=== PATIENT | male | born 1955 | race African-American/Black ===

== ENCOUNTER 2019-05-31 08:58 | Inpatient (IN) ==
[2019-05-31] MEDS ORDERED: DEXTROSE 50% 25 GM/50 ML VIAL IV PRN (09:30)
[2019-05-31] MEDS ORDERED: DEXTROSE 10% 25 GM/250 ML BAG IV PRN (09:30)
[2019-05-31] MEDS ORDERED: GLUCAGON 1 MG VIAL IM PRN ×2 (09:30)
[2019-05-31] MEDS ORDERED: SODIUM CHLORIDE 0.9% 1,000 ML IV SCH (09:30)
[2019-05-31] MEDS ORDERED: ZALEPLON 5 MG CAPSULE PO PRN (09:35)
[2019-05-31] MEDS: carvediloL 3.125 MG TABLET PO SCH (20:47)
[2019-06-01 04:16] LABS: ABG Base Excess 1.3 MMOL/L (-2.5-2.5); ABG HCO3 25.4 MMOL/L (20-26); ABG Oxygen Saturation 95.1 % (95-100); ABG PCO2 39.8 MM HG (35-48); ABG PH 7.419 (7.35-7.45); ABG PO2 74.3 MM HG (80-95); ABG TCO2 21.9 MMOL/L (23-27); Allen Test Positive; Pt O2 Delivery Device Room Air
[2019-06-01 04:50] LABS: Basophils # 0.1 10*3/uL (0.0-0.2); Basophils % 1.1 % (0.0-0.8); Eosinophils # 0.2 10*3/uL (0.0-0.87); Eosinophils % 3.4 % (0.00-10.9); Hematocrit 43.2 VOL% (42.0-52.0); Hemoglobin 14.5 GM/DL (14.0-18.0); Immature Granulocytes % 0.2 %; Immature Granulocytes Absolute 0.01 #; Lymphocytes # 2.7 10*3/uL (1.4-4.0); Lymphocytes % 57.2 % (21.2-54.2); Mean Corpuscular HGB Conc 33.6 GM/DL (32-36); Mean Platelet Volume 12.6 FL (9.6-12.0); Monocytes % 11.1 % (1.7-12.7); Platelet Count 164 T/CUMM (130-400); Red Cell Distribution Width 13.2 % (9.3-17.3); White Blood Count 4.7 T/CUMM (4-12)
[2019-06-01 05:02] LABS: Albumin 3.5 G/DL (3.4-5.0); Bilirubin,Total 1.1 MG/DL (0.2-1.0); Calcium 9.4 MG/DL (8.5-10.1); Osmolality,Calculated 282.3 MOS/KG (273-304); Total Protein 7.3 G/DL (6.4-8.3)
[2019-06-01 05:18] LABS: Eosinophils 3 % (0-10); Lymphocytes 63 % (20-55); Segmented Neutrophils 23 % (50-85); Total Cells Counted 100
[2019-06-01 05:19] LABS: Platelet Estimate Normal
[2019-06-01] MEDS: CHLORHEXIDINE 0.12% ORAL RINSE 60 ML BOTTLE SWISH/SPIT SCH ×3 (06:28→21:40)
[2019-06-01] MEDS: carvediloL 3.125 MG TABLET PO SCH ×2 (08:50→21:39)
[2019-06-01] MEDS: amLODIPine 10 MG TABLET PO SCH (08:50)
[2019-06-01] MEDS: ATORVASTATIN 40 MG TABLET PO SCH (08:50)
[2019-06-01] MEDS ORDERED: CEFUROXIME INJ 1,500 MG in SYRINGE 1 EACH IV ONE (09:30)
[2019-06-01] MEDS ORDERED: oxyCODONE/ACETAMINOPHEN 5-325 MG TABLET PO PRN (12:50)
[2019-06-01] MEDS: CHLORHEXIDINE 4% SOLN 118 ML BOTTLE TOP SCH ×3 (18:00→21:40)
[2019-06-02] MEDS ORDERED: SODIUM CHLORIDE 0.9% 1,000 ML IV SCH (04:00)
[2019-06-02] MEDS ORDERED: CEFUROXIME INJ 1,500 MG in SYRINGE 1 EACH IV ONE (04:00)
[2019-06-02] MEDS: CHLORHEXIDINE 4% SOLN 118 ML BOTTLE TOP SCH ×2 (04:57→09:25)
[2019-06-02] MEDS ORDERED: PAPAVERINE 60 MG/2 ML VIAL ONE (05:10)
[2019-06-02] MEDS ORDERED: VANCOMYCIN 1,000 MG VIAL ONE (05:10)
[2019-06-02] MEDS ORDERED: HEPARIN/NACL 0.9% 2 UNITS/ML 500 ML IV ONE (05:54)
[2019-06-02] MEDS ORDERED: SUFentanil 250 MCG/5 ML AMP ONE (05:55)
[2019-06-02] MEDS ORDERED: MIDAZOLAM 10 MG/2 ML VIAL ONE ×2 (05:55→05:56)
[2019-06-02] MEDS ORDERED: SUFentanil 50 MCG/ML AMP ONE (05:55)
[2019-06-02] MEDS: carvediloL 3.125 MG TABLET PO SCH ×2 (06:07→09:25)
[2019-06-02] MEDS: amLODIPine 10 MG TABLET PO SCH ×2 (06:07→09:24)
[2019-06-02] MEDS ORDERED: ePHEDrine 50 MG/ML AMP ONE (06:12)
[2019-06-02 07:48] LABS: ABG Base Excess -0.8 MMOL/L (-2.5-2.5); ABG HCO3 23.8 MMOL/L (20-26); ABG Oxygen Saturation 99.7 % (95-100); ABG PCO2 36.1 MM HG (35-48); ABG PH 7.416 (7.35-7.45); Glucose Heart Surgery 119 MG/DL (74-106); Hematocrit Heart Surgery 43.1 PERCENT (42-52); Ionized Calcium Arterial 1.43 MMOL/L (1.21-1.46); PCO2 Patient Temp Arterial 36.1 MMHG; PH Patient Temp Arterial 7.416; Patient Temperature 37 CELCIUS; Potassium Heart/CVR 3.9 MMOL/L (3.5-5.1); Sodium Heart/CVR 134 MMOL/L (135-145)
[2019-06-02 09:15] LABS: Hematocrit Heart Surgery 30.4 PERCENT (42-52); Hemoglobin Heart Surgery 9.8 G/DL (14.0-18.0); PCO2 Patient Temp Venous 35.2 MM HG; PH Patient Temp Venous 7.439; PO2 Patient Temp Venous 40.6 MM HG; Potassium Heart/CVR 4.7 MMOL/L (3.5-5.1); VBG Base Excess 0.1 MEQ/L (0-4); VBG HCO3 24.2 MEQ/L (24-28); VBG Oxygen Saturation 81.3 %; VBG PH 7.424; VBG PO2 43.5 MMHG (17-40)
[2019-06-02 09:19] LABS: Apearance,Urine CLEAR (Clear); Bacteria,Urine Occasional /HPF (Few); Bilirubin,Urine Negative (Negative); Blood, Urine Small mg/dL (Negative); Glucose,Urine (UA) Negative (Negative); Ketones,Urine Negative (Negative); Mucus,Urine Occasional /LPF (Occasional); Nitrite,Urine Negative (Negative); Protein,Urine Negative; RBC,Urine 2 /HPF (0-4); Squamous Epithelial Cell,Urine Occasional /HPF (0-10); Urine Color Yellow (Yellow); Urine Specific Gravity 1.019 (1.001-1.035); WBC,Urine <1 /HPF (0-6)
[2019-06-02] MEDS: ATORVASTATIN 40 MG TABLET PO SCH (09:24)
[2019-06-02] MEDS: CHLORHEXIDINE 0.12% ORAL RINSE 60 ML BOTTLE SWISH/SPIT SCH ×2 (09:24→21:34)
[2019-06-02] MEDS ORDERED: ALBUMIN 5% 12.5 GM/250 ML VIAL IV ONE ×2 (09:35→11:02)
[2019-06-02 09:41] LABS: Hematocrit Heart Surgery 32.5 PERCENT (42-52); Hemoglobin Heart Surgery 10.5 G/DL (14.0-18.0); PCO2 Patient Temp Venous 37.3 MM HG; PH Patient Temp Venous 7.412; PO2 Patient Temp Venous 43.6 MM HG; Potassium Heart/CVR 4.9 MMOL/L (3.5-5.1); VBG Base Excess -0.6 MEQ/L (0-4); VBG HCO3 23.7 MEQ/L (24-28); VBG PCO2 37.3 MMHG (41-51); VBG PH 7.412; VBG PO2 43.6 MMHG (17-40)
[2019-06-02 10:15] LABS: ABG Base Excess -3.1 MMOL/L (-2.5-2.5); ABG HCO3 21.9 MMOL/L (20-26); ABG Oxygen Saturation 99.8 % (95-100); ABG PCO2 36.3 MM HG (35-48); ABG PH 7.381 (7.35-7.45); ABG TCO2 19.2 MMOL/L (23-27); Glucose Heart Surgery 210 MG/DL (74-106); Hematocrit Heart Surgery 35.6 PERCENT (42-52); Hemoglobin Heart Surgery 11.6 G/DL (14.0-18.0); Ionized Calcium Arterial 1.55 MMOL/L (1.21-1.46); PCO2 Patient Temp Arterial 36.3 MMHG; PH Patient Temp Arterial 7.381; Patient Temperature 37 CELCIUS; Potassium Heart/CVR 4.2 MMOL/L (3.5-5.1); Sodium Heart/CVR 131 MMOL/L (135-145)
[2019-06-02] MEDS ORDERED: methylPREDNISolone SOD SUC 1,000 MG/8 ML VIAL ONE (10:20)
[2019-06-02] MEDS ORDERED: DEXTROSE 5% KCL 20 MEQ 20 MEQ/1,000 ML BAG IV ONE (10:20)
[2019-06-02] MEDS ORDERED: LIDOCAINE 2% 5 ML VIAL ONE ×2 (10:20→11:02)
[2019-06-02] MEDS ORDERED: SODIUM BICARBONATE 50 MEQ/50 ML VIAL IV ONE (10:20)
[2019-06-02] MEDS ORDERED: MAGNESIUM SULFATE 5 GM/10 ML VIAL IV ONE (10:20)
[2019-06-02] MEDS ORDERED: MANNITOL 100 GM/500 ML BAG IV ONE (10:20)
[2019-06-02] MEDS ORDERED: PROTAMINE SULFATE 250 MG/25 ML VIAL IV ONE (10:20)
[2019-06-02] MEDS ORDERED: HEPARIN 10,000 UNIT/10 ML VIAL ONE (10:20)
[2019-06-02] MEDS ORDERED: ALBUMIN 25% 25 GM/100 ML VIAL IV ONE (10:20)
[2019-06-02] MEDS ORDERED: FUROSEMIDE 20 MG/2 ML VIAL ONE (10:21)
[2019-06-02] MEDS: LACTATED RINGERS 1,000 ML IV PRN ×3 (10:50→16:42)
[2019-06-02] MEDS: SODIUM CHLORIDE 0.45% 1,000 ML IV SCH ×2 (10:50)
[2019-06-02] MEDS ORDERED: SEVOFLURANE 1 UNIT/15 MINUTE INH ONE (11:02)
[2019-06-02] MEDS ORDERED: METOPROLOL TARTRATE 5 MG/5 ML VIAL IV ONE (11:02)
[2019-06-02] MEDS ORDERED: VECURONIUM 10 MG VIAL IV ONE (11:02)
[2019-06-02] MEDS ORDERED: PHENYLEPHRINE 10 MG/1 ML VIAL IV ONE (11:02)
[2019-06-02] MEDS ORDERED: CALCIUM CHLORIDE 1,000 MG/10 ML VIAL IV ONE (11:02)
[2019-06-02] MEDS ORDERED: SODIUM CHLORIDE 0.9% 500 ML IV ONE (11:03)
[2019-06-02] MEDS ORDERED: SODIUM CHLORIDE 0.9% 100 ML IV ONE (11:03)
[2019-06-02] MEDS ORDERED: AMINOCAPROIC ACID 5,000 MG/20 ML VIAL ONE (11:03)
[2019-06-02] MEDS ORDERED: SODIUM CHLORIDE 0.9% 1,000 ML IV ONE (11:03)
[2019-06-02] MEDS ORDERED: LACTATED RINGERS 1,000 ML IV ONE (11:03)
[2019-06-02] MEDS ORDERED: INSULIN REGULAR 100 UNIT/ML IV ONE (11:07)
[2019-06-02] MEDS ORDERED: ACETAMINOPHEN 650 MG SUPP RECTAL PRN (11:07)
[2019-06-02] MEDS ORDERED: NITROPRUSSIDE 100 MG in DEXTROSE 5% 250 ML IV PRN (11:07)
[2019-06-02] MEDS ORDERED: LACTATED RINGERS 250 ML IV PRN (11:07)
[2019-06-02] MEDS ORDERED: MAGNESIUM SULF RIDER 2 GM in PREMIX 1 EACH IV PRN (11:07)
[2019-06-02] MEDS ORDERED: ALBUMIN 5% 12.5 GM in PREMIX 1 EACH IV PRN (11:07)
[2019-06-02] MEDS ORDERED: VECURONIUM 10 MG VIAL IV PRN ×2 (11:07)
[2019-06-02] MEDS ORDERED: DEXTROSE 10% 250 ML BAG IV PRN ×2 (11:07)
[2019-06-02] MEDS ORDERED: CALCIUM CHLORIDE 1,000 MG/10 ML SYRINGE IV PRN (11:07)
[2019-06-02] MEDS ORDERED: ONDANSETRON 4 MG/2 ML VIAL IV PRN (11:07)
[2019-06-02] MEDS ORDERED: MIDAZOLAM 10 MG/2 ML VIAL IV PRN (11:07)
[2019-06-02] MEDS ORDERED: INSULIN REGULAR 100 UNIT/ML IV PRN (11:07)
[2019-06-02] MEDS ORDERED: PHENYLEPHRINE DRIP 40 MG/250 ML PREMIX IV PRN (11:07)
[2019-06-02] MEDS ORDERED: MAGNESIUM SULF RIDER 4 GM in PREMIX 1 EACH IV PRN (11:07)
[2019-06-02] MEDS ORDERED: KETOROLAC 30 MG/1 ML VIAL IV SCH (11:07)
[2019-06-02] MEDS ORDERED: PROTAMINE SULFATE 50 MG/5 ML VIAL IV STA (11:09)
[2019-06-02 11:17] LABS: Basophils % 0.3 % (0.0-0.8); Eosinophils # 0.1 10*3/uL (0.0-0.87); Eosinophils % 1.3 % (0.00-10.9); Hematocrit 35.5 VOL% (42.0-52.0); Immature Granulocytes % 0.5 %; Immature Granulocytes Absolute 0.03 #; Lymphocytes # 1.4 10*3/uL (1.4-4.0); Lymphocytes % 23.3 % (21.2-54.2); Mean Corpuscular HGB Conc 33.8 GM/DL (32-36); Mean Corpuscular Volume 89.6 FL (87-102); Mean Platelet Volume 12.1 FL (9.6-12.0); Monocytes % 6.2 % (1.7-12.7); Neutrophils % 68.4 % (38.7-73.9); Red Blood Count 3.96 MC/CUMM (3.8-5.5); Red Cell Distribution Width 13.1 % (9.3-17.3); White Blood Count 6.1 T/CUMM (4-12)
[2019-06-02 11:17] LABS: ABG Base Excess -1.7 MMOL/L (-2.5-2.5); ABG Oxygen Saturation 99.2 % (95-100); ABG PCO2 35.2 MM HG (35-48); ABG TCO2 19.7 MMOL/L (23-27); Glucose Heart Surgery 171 MG/DL (74-106); Hematocrit Heart Surgery 38.2 PERCENT (42-52); Hemoglobin Heart Surgery 12.4 G/DL (14.0-18.0); Potassium Heart/CVR 4.4 MMOL/L (3.5-5.1)
[2019-06-02] MEDS ORDERED: NITROGLYCERIN DRIP 50 MG/250 ML BOTTLE IV ONE ×2 (11:21→18:19)
[2019-06-02 11:22] LABS: Platelet Count 131 T/CUMM (130-400)
[2019-06-02 11:25] LABS: INR 1.1; PT Patient Result 12.1 SECS (9.6-12.2); Partial Thromboplastin Time 30.2 SECS (20.8-36.0)
[2019-06-02 11:46] LABS: CKMB % 2.8 %
[2019-06-02 11:47] LABS: Albumin 3.3 G/DL (3.4-5.0); Calcium 9.4 MG/DL (8.5-10.1); Total Protein 6.1 G/DL (6.4-8.3); Troponin I 0.785 NG/ML (0.00-0.045)
[2019-06-02 12:14] LABS: ABG Base Excess -2.3 MMOL/L (-2.5-2.5); ABG HCO3 21.2 MMOL/L (20-26); ABG Oxygen Saturation 96.4 % (95-100); ABG PCO2 32.4 MM HG (35-48); ABG PH 7.434 (7.35-7.45); ABG PO2 85.1 MM HG (80-95); ABG TCO2 22.2 MMOL/L (23-27); Glucose Heart Surgery 141 MG/DL (74-106); Hemoglobin Heart Surgery 11.7 G/DL (14.0-18.0); Potassium Heart/CVR 3.8 MMOL/L (3.5-5.1)
[2019-06-02] MEDS: INSULIN REGULAR DRIP 100 ML IV SCH ×2 (12:20→16:28)
[2019-06-02] MEDS: POTASSIUM CHLORIDE RIDER 20 MEQ in PREMIX 1 EACH IV PRN ×2 (12:32→19:48)
[2019-06-02] MEDS ORDERED: SODIUM CHLORIDE 0.9% 1,000 ML IV PRN ×3 (13:15→13:51)
[2019-06-02 13:22] LABS: ABG Base Excess -2.1 MMOL/L (-2.5-2.5); ABG HCO3 22.6 MMOL/L (20-26); ABG Oxygen Saturation 96.8 % (95-100); ABG PCO2 32.6 MM HG (35-48); ABG PH 7.427 (7.35-7.45); ABG PO2 82.5 MM HG (80-95); ABG TCO2 19.3 MMOL/L (23-27); Glucose Heart Surgery 159 MG/DL (74-106); Hematocrit Heart Surgery 33.5 PERCENT (42-52); Hemoglobin Heart Surgery 10.9 G/DL (14.0-18.0); Potassium Heart/CVR 4.7 MMOL/L (3.5-5.1)
[2019-06-02] MEDS: POTASSIUM CHLORIDE RIDER 10 MEQ in PREMIX 1 EACH IV PRN ×3 (13:27→20:32)
[2019-06-02] MEDS: MORPHINE 4 MG/1 ML VIAL IV PRN (15:22)
[2019-06-02 15:43] LABS: ABG Base Excess -2.4 MMOL/L (-2.5-2.5); ABG HCO3 22.4 MMOL/L (20-26); ABG Oxygen Saturation 98.7 % (95-100); ABG PCO2 33.4 MM HG (35-48); ABG PH 7.416 (7.35-7.45); ABG TCO2 19.4 MMOL/L (23-27); Glucose Heart Surgery 213 MG/DL (74-106); Hematocrit Heart Surgery 31.6 PERCENT (42-52); Hemoglobin Heart Surgery 10.2 G/DL (14.0-18.0); Potassium Heart/CVR 4.1 MMOL/L (3.5-5.1)
[2019-06-02] MEDS: MIDAZOLAM 2 MG/2 ML VIAL IV PRN (16:24)
[2019-06-02 17:55] LABS: Basophils % 0.1 % (0.0-0.8); Hematocrit 26.1 VOL% (42.0-52.0); Hemoglobin 8.9 GM/DL (14.0-18.0); Immature Granulocytes % 0.6 %; Immature Granulocytes Absolute 0.06 #; Lymphocytes % 9.1 % (21.2-54.2); Mean Corpuscular HGB Conc 34.1 GM/DL (32-36); Mean Corpuscular Volume 90.3 FL (87-102); Mean Platelet Volume 11.7 FL (9.6-12.0); Monocytes % 5.2 % (1.7-12.7); Platelet Count 137 T/CUMM (130-400); Red Blood Count 2.89 MC/CUMM (3.8-5.5); Red Cell Distribution Width 13.2 % (9.3-17.3); White Blood Count 10.4 T/CUMM (4-12)
[2019-06-02 18:13] LABS: Calcium 9.2 MG/DL (8.5-10.1); Osmolality,Calculated 285.5 MOS/KG (273-304)
[2019-06-02] MEDS ORDERED: NITROGLYCERIN DRIP 50 MG/250 ML BOTTLE IV PRN (18:20)
[2019-06-02] MEDS: KETOROLAC 15 MG/1 ML VIAL IV SCH ×2 (18:21→22:15)
[2019-06-02] MEDS: CEFUROXIME INJ 1,500 MG in SYRINGE 1 EACH IV SCH (18:58)
[2019-06-02] MEDS ORDERED: FUROSEMIDE 40 MG/4 ML VIAL IV PRN (19:26)
[2019-06-02 20:58] LABS: CKMB % 1.6 %
[2019-06-02 21:00] LABS: Troponin I 1.43 NG/ML (0.00-0.045)
[2019-06-03] MEDS: MIDAZOLAM 2 MG/2 ML VIAL IV PRN (03:41)
[2019-06-03] MEDS ORDERED: HALOPERIDOL 5 MG/ML AMP IV PRN (04:04)
[2019-06-03 04:15] LABS: ABG Base Excess -1.4 MMOL/L (-2.5-2.5); ABG HCO3 23.2 MMOL/L (20-26); ABG Oxygen Saturation 97.1 % (95-100); ABG PCO2 31.7 MM HG (35-48); ABG PH 7.447 (7.35-7.45); ABG PO2 84.3 MM HG (80-95); ABG TCO2 19.6 MMOL/L (23-27); Glucose Heart Surgery 125 MG/DL (74-106); Hematocrit Heart Surgery 33.4 PERCENT (42-52); Hemoglobin Heart Surgery 10.8 G/DL (14.0-18.0)
[2019-06-03] MEDS ORDERED: FUROSEMIDE 40 MG/4 ML VIAL IV ONE ×2 (04:17→12:58)
[2019-06-03 04:30] LABS: Basophils % 0.1 % (0.0-0.8); Hematocrit 30.9 VOL% (42.0-52.0); Hemoglobin 10.4 GM/DL (14.0-18.0); Immature Granulocytes % 0.6 %; Immature Granulocytes Absolute 0.09 #; Lymphocytes # 1.5 10*3/uL (1.4-4.0); Lymphocytes % 9.1 % (21.2-54.2); Mean Corpuscular HGB Conc 33.7 GM/DL (32-36); Mean Corpuscular Volume 87.8 FL (87-102); Mean Platelet Volume 12.6 FL (9.6-12.0); Monocytes % 7.7 % (1.7-12.7); Neutrophils % 82.5 % (38.7-73.9); Platelet Count 151 T/CUMM (130-400); Red Blood Count 3.52 MC/CUMM (3.8-5.5); Red Cell Distribution Width 13.6 % (9.3-17.3); White Blood Count 16.3 T/CUMM (4-12)
[2019-06-03] MEDS: KETOROLAC 15 MG/1 ML VIAL IV SCH ×3 (04:30→16:54)
[2019-06-03 04:45] LABS: Albumin 3.2 G/DL (3.4-5.0); Bilirubin,Direct 0.23 MG/DL (0.0-0.20); Bilirubin,Total 0.5 MG/DL (0.2-1.0); Calcium 8.8 MG/DL (8.5-10.1); Osmolality,Calculated 278.7 MOS/KG (273-304)
[2019-06-03 04:54] LABS: CKMB % 1.2 %
[2019-06-03 04:59] LABS: Troponin I 2.24 NG/ML (0.00-0.045)
[2019-06-03] MEDS: POTASSIUM CHLORIDE RIDER 20 MEQ in PREMIX 1 EACH IV PRN (05:34)
[2019-06-03] MEDS: CEFUROXIME INJ 1,500 MG in SYRINGE 1 EACH IV SCH ×2 (06:11→18:27)
[2019-06-03 08:28] LABS: ABG Base Excess -1.3 MMOL/L (-2.5-2.5); ABG HCO3 23.3 MMOL/L (20-26); ABG Oxygen Saturation 96.8 % (95-100); ABG PCO2 35.8 MM HG (35-48); ABG PH 7.413 (7.35-7.45); ABG PO2 86.1 MM HG (80-95); ABG TCO2 20.4 MMOL/L (23-27); Glucose Heart Surgery 129 MG/DL (74-106); Hematocrit Heart Surgery 34.7 PERCENT (42-52); Hemoglobin Heart Surgery 11.2 G/DL (14.0-18.0); Potassium Heart/CVR 4.5 MMOL/L (3.5-5.1)
[2019-06-03] MEDS: MORPHINE 10 MG/1 ML VIAL IV PRN (08:55)
[2019-06-03] MEDS: CHLORHEXIDINE 0.12% ORAL RINSE 60 ML BOTTLE SWISH/SPIT SCH ×2 (10:19→21:19)
[2019-06-03] MEDS: SODIUM CHLORIDE 0.45% 1,000 ML IV SCH ×3 (11:55→17:31)
[2019-06-03] MEDS: INSULIN REGULAR DRIP 100 ML IV SCH (11:57)
[2019-06-03 11:58] LABS: ABG Base Excess -0.2 MMOL/L (-2.5-2.5); ABG HCO3 23.2 MMOL/L (20-26); ABG Oxygen Saturation 96.3 % (95-100); ABG PCO2 33.8 MM HG (35-48); ABG PH 7.455 (7.35-7.45); ABG PO2 84.5 MM HG (80-95); ABG TCO2 24.3 MMOL/L (23-27); Glucose Heart Surgery 121 MG/DL (74-106); Potassium Heart/CVR 3.9 MMOL/L (3.5-5.1)
[2019-06-03] MEDS: MORPHINE 4 MG/1 ML VIAL IV PRN ×2 (12:40→18:07)
[2019-06-03] MEDS ORDERED: GLUCAGON 1 MG VIAL IM PRN (14:23)
[2019-06-03] MEDS ORDERED: DEXTROSE 10% 250 ML BAG IV PRN (14:23)
[2019-06-03] MEDS ORDERED: ZALEPLON 5 MG CAPSULE PO PRN (14:25)
[2019-06-03 14:28] LABS: CKMB % 0.9 %
[2019-06-03 14:34] LABS: Troponin I 3.09 NG/ML (0.00-0.045)
[2019-06-03] MEDS: carvediloL 3.125 MG TABLET PO SCH (21:19)
[2019-06-03] MEDS: oxyCODONE/ACETAMINOPHEN 5-325 MG TABLET PO PRN (22:09)
[2019-06-04 03:55] LABS: Basophils % 0.1 % (0.0-0.8); Hematocrit 25.1 VOL% (42.0-52.0); Hemoglobin 8.3 GM/DL (14.0-18.0); Immature Granulocytes % 0.6 %; Immature Granulocytes Absolute 0.09 #; Lymphocytes # 1.9 10*3/uL (1.4-4.0); Lymphocytes % 13.5 % (21.2-54.2); Mean Corpuscular HGB Conc 33.1 GM/DL (32-36); Mean Corpuscular Volume 91.3 FL (87-102); Monocytes % 8.3 % (1.7-12.7); Neutrophils % 77.5 % (38.7-73.9); Platelet Count 118 T/CUMM (130-400); Red Blood Count 2.75 MC/CUMM (3.8-5.5); Red Cell Distribution Width 13.9 % (9.3-17.3); White Blood Count 14.1 T/CUMM (4-12)
[2019-06-04 04:19] LABS: Albumin 3.1 G/DL (3.4-5.0); Bilirubin,Direct 0.25 MG/DL (0.0-0.20); Bilirubin,Total 1.1 MG/DL (0.2-1.0); Calcium 8.4 MG/DL (8.5-10.1); Osmolality,Calculated 282.5 MOS/KG (273-304); Total Protein 6.3 G/DL (6.4-8.3)
[2019-06-04] MEDS: oxyCODONE/ACETAMINOPHEN 5-325 MG TABLET PO PRN ×3 (05:39→20:09)
[2019-06-04] MEDS: amLODIPine 10 MG TABLET PO SCH (09:43)
[2019-06-04] MEDS: carvediloL 3.125 MG TABLET PO SCH ×2 (09:44→20:09)
[2019-06-04] MEDS: CHLORHEXIDINE 0.12% ORAL RINSE 60 ML BOTTLE SWISH/SPIT SCH ×3 (09:44→20:12)
[2019-06-04] MEDS: MORPHINE 10 MG/1 ML VIAL IV PRN (09:44)
[2019-06-04] MEDS: ATORVASTATIN 40 MG TABLET PO SCH (09:44)
[2019-06-04] MEDS ORDERED: ACETAMINOPHEN 325 MG TABLET PO PRN (11:16)
[2019-06-04] MEDS ORDERED: MAGNESIUM SULF RIDER 4 GM in PREMIX 1 EACH IV PRN (11:16)
[2019-06-04] MEDS ORDERED: MORPHINE 4 MG/1 ML VIAL IV PRN (11:16)
[2019-06-04] MEDS ORDERED: MAGNESIUM SULF RIDER 2 GM in PREMIX 1 EACH IV PRN (11:16)
[2019-06-04] MEDS ORDERED: ONDANSETRON 4 MG/2 ML VIAL IV PRN (11:16)
[2019-06-04] MEDS ORDERED: ALUMINUM/MAGNES/SIMETH MAX STR 30 ML UDCUP PO PRN (11:16)
[2019-06-04] MEDS ORDERED: KETOROLAC 30 MG/1 ML VIAL IV PRN (11:16)
[2019-06-04] MEDS ORDERED: DEXTROSE 10% 250 ML BAG IV PRN (11:16)
[2019-06-04] MEDS ORDERED: SODIUM CHLOR 0.45% KCL 20 MEQ 20 MEQ/1,000 ML BAG IV SCH (11:16)
[2019-06-04] MEDS ORDERED: MAGNESIUM HYDROXIDE SUSP 30 ML UDCUP PO PRN (11:16)
[2019-06-04] MEDS ORDERED: POTASSIUM CHLORIDE 20 MEQ TABLET PO PRN (11:16)
[2019-06-04] MEDS ORDERED: GLUCAGON 1 MG VIAL IM PRN ×2 (11:16)
[2019-06-04] MEDS ORDERED: DEXTROSE 50% 25 GM/50 ML VIAL IV PRN (11:16)
[2019-06-04] MEDS: PANTOPRAZOLE 40 MG TABLET PO SCH (11:36)
[2019-06-04] MEDS: ASPIRIN EC 325 MG TABLET PO SCH (11:36)
[2019-06-04] MEDS: FERROUS SULFATE 325 MG TABLET PO SCH (11:36)
[2019-06-04] MEDS: DOCUSATE SODIUM 100 MG CAPSULE PO SCH (11:36)
[2019-06-04] MEDS: INSULIN REGULAR DRIP 100 ML IV SCH (13:01)
[2019-06-04] MEDS: SODIUM CHLORIDE 0.45% 1,000 ML IV SCH ×2 (13:01)
[2019-06-04] MEDS: ZALEPLON 5 MG CAPSULE PO PRN (20:09)
[2019-06-05] MEDS: oxyCODONE/ACETAMINOPHEN 5-325 MG TABLET PO PRN ×4 (04:21→20:25)
[2019-06-05 04:34] LABS: Basophils % 0.1 % (0.0-0.8); Hematocrit 30.8 VOL% (42.0-52.0); Hemoglobin 10.2 GM/DL (14.0-18.0); Immature Granulocytes % 0.7 %; Lymphocytes # 2.3 10*3/uL (1.4-4.0); Lymphocytes % 16.7 % (21.2-54.2); Mean Corpuscular HGB Conc 33.1 GM/DL (32-36); Mean Corpuscular Volume 90.6 FL (87-102); Monocytes % 9.2 % (1.7-12.7); Neutrophils % 73.3 % (38.7-73.9); Platelet Count 156 T/CUMM (130-400); Red Cell Distribution Width 13.3 % (9.3-17.3)
[2019-06-05 05:05] LABS: Alanine Aminotransferase 32 U/L (16-61); Albumin 3.1 G/DL (3.4-5.0); Alkaline Phosphatase 42 U/L (45-117); Aspartate Amino Transferase 28 U/L (0-37); Bilirubin,Indirect 0.6 MG/DL (0.0-1.0); Blood Urea Nitrogen 20 MG/DL (7-18); Calcium 8.8 MG/DL (8.5-10.1); Estimated Glom Filtration Rate 110 ML/MIN; Glucose 124 MG/DL (74-106); Osmolality,Calculated 278.7 MOS/KG (273-304); Total Protein 6.8 G/DL (6.4-8.3)
[2019-06-05] MEDS ORDERED: FUROSEMIDE 40 MG/4 ML VIAL IV ONE (06:00)
[2019-06-05] MEDS: PANTOPRAZOLE 40 MG TABLET PO SCH (09:33)
[2019-06-05] MEDS: amLODIPine 10 MG TABLET PO SCH (09:33)
[2019-06-05] MEDS: ATORVASTATIN 40 MG TABLET PO SCH (09:33)
[2019-06-05] MEDS: CHLORHEXIDINE 0.12% ORAL RINSE 60 ML BOTTLE SWISH/SPIT SCH ×2 (09:33→20:25)
[2019-06-05] MEDS: carvediloL 3.125 MG TABLET PO SCH ×2 (09:33→20:25)
[2019-06-05] MEDS: DOCUSATE SODIUM 100 MG CAPSULE PO SCH (09:33)
[2019-06-05] MEDS: FERROUS SULFATE 325 MG TABLET PO SCH (09:33)
[2019-06-05] MEDS: ASPIRIN EC 325 MG TABLET PO SCH (09:33)
[2019-06-05] MEDS: ZALEPLON 5 MG CAPSULE PO PRN (20:25)
[2019-06-06] MEDS: oxyCODONE/ACETAMINOPHEN 5-325 MG TABLET PO PRN ×5 (03:22→23:23)
[2019-06-06 05:06] LABS: Basophils # 0.1 10*3/uL (0.0-0.2); Basophils % 0.4 % (0.0-0.8); Eosinophils % 0.4 % (0.00-10.9); Hematocrit 33.9 VOL% (42.0-52.0); Hemoglobin 11.3 GM/DL (14.0-18.0); Immature Granulocytes % 0.5 %; Immature Granulocytes Absolute 0.06 #; Lymphocytes % 35.6 % (21.2-54.2); Mean Corpuscular HGB Conc 33.3 GM/DL (32-36); Mean Corpuscular Volume 90.2 FL (87-102); Monocytes % 11.6 % (1.7-12.7); Neutrophils % 51.5 % (38.7-73.9); Platelet Count 207 T/CUMM (130-400); Red Blood Count 3.76 MC/CUMM (3.8-5.5); White Blood Count 11.3 T/CUMM (4-12)
[2019-06-06 05:31] LABS: Alanine Aminotransferase 35 U/L (16-61); Albumin 3.3 G/DL (3.4-5.0); Alkaline Phosphatase 47 U/L (45-117); Aspartate Amino Transferase 25 U/L (0-37); Bilirubin,Indirect 0.8 MG/DL (0.0-1.0); Blood Urea Nitrogen 31 MG/DL (7-18); Calcium 8.9 MG/DL (8.5-10.1); Estimated Glom Filtration Rate 95 ML/MIN; Glucose 111 MG/DL (74-106); Osmolality,Calculated 284.5 MOS/KG (273-304); Total Protein 7.1 G/DL (6.4-8.3)
[2019-06-06 05:33] LABS: Troponin I 0.384 NG/ML (0.00-0.045)
[2019-06-06] MEDS: amLODIPine 10 MG TABLET PO SCH (09:11)
[2019-06-06] MEDS: FERROUS SULFATE 325 MG TABLET PO SCH (09:11)
[2019-06-06] MEDS: carvediloL 3.125 MG TABLET PO SCH ×2 (09:11→20:18)
[2019-06-06] MEDS: ASPIRIN EC 325 MG TABLET PO SCH (09:11)
[2019-06-06] MEDS: DOCUSATE SODIUM 100 MG CAPSULE PO SCH (09:11)
[2019-06-06] MEDS: PANTOPRAZOLE 40 MG TABLET PO SCH (09:12)
[2019-06-06] MEDS: ATORVASTATIN 40 MG TABLET PO SCH (09:12)
[2019-06-06] MEDS: CHLORHEXIDINE 0.12% ORAL RINSE 60 ML BOTTLE SWISH/SPIT SCH ×2 (09:12→20:18)
[2019-06-07] MEDS: oxyCODONE/ACETAMINOPHEN 5-325 MG TABLET PO PRN ×2 (05:20→09:18)
[2019-06-07 08:03] VITALS: BP 102/73
[2019-06-07] MEDS: ASPIRIN EC 325 MG TABLET PO SCH (08:29)
[2019-06-07] MEDS: DOCUSATE SODIUM 100 MG CAPSULE PO SCH (08:29)
[2019-06-07] MEDS: FERROUS SULFATE 325 MG TABLET PO SCH (08:30)
[2019-06-07] MEDS: carvediloL 3.125 MG TABLET PO SCH (08:30)
[2019-06-07] MEDS: amLODIPine 10 MG TABLET PO SCH (08:30)
[2019-06-07] MEDS: ATORVASTATIN 40 MG TABLET PO SCH (08:30)
[2019-06-07] MEDS: PANTOPRAZOLE 40 MG TABLET PO SCH (08:31)
[2019-06-07] MEDS: CHLORHEXIDINE 0.12% ORAL RINSE 60 ML BOTTLE SWISH/SPIT SCH (08:37)
== END 2019-06-07 11:28 | disposition home health service (06) | DRG 236 ==
LOC: N.TELES 14:11 → N.CVR 06-02 08:57 → N.ICU 06-03 16:04 → N.TELES 06-04 12:54

== ENCOUNTER 2021-05-23 16:19 | Observation (INO) ==
[2021-05-23 16:55] LABS: Basophils # 0.1 10*3/uL (0.0-0.2); Basophils % 1.1 % (0.0-0.8); Eosinophils # 0.2 10*3/uL (0.0-0.87); Eosinophils % 3.5 % (0.00-10.9); Hematocrit 40.7 VOL% (42.0-52.0); Hemoglobin 13.2 GM/DL (14.0-18.0); Immature Granulocytes % 0.2 %; Immature Granulocytes Absolute 0.01 #; Lymphocytes # 3.3 10*3/uL (1.4-4.0); Lymphocytes % 51.3 % (21.2-54.2); Mean Corpuscular HGB Conc 32.4 GM/DL (32-36); Mean Corpuscular Volume 90.4 FL (87-102); Monocytes % 7.1 % (1.7-12.7); Neutrophils % 36.8 % (38.7-73.9); Platelet Count 147 T/CUMM (130-400); Red Cell Distribution Width 14.3 % (9.3-17.3); White Blood Count 6.4 T/CUMM (4-12)
[2021-05-23 17:15] LABS: Alanine Aminotransferase 25 U/L (16-61); Albumin 3.9 G/DL (3.4-5.0); Alkaline Phosphatase 73 U/L (45-117); Aspartate Amino Transferase 29 U/L (0-37); Bilirubin,Total < 0.39 MG/DL (0.20-1.00); Blood Urea Nitrogen 18 MG/DL (7-18); Calcium 8.9 MG/DL (8.5-10.1); Carbon Dioxide 29 MMOL/L (21-32); Estimated Glom Filtration Rate 125 ML/MIN; Glucose 82 MG/DL (74-106); Osmolality,Calculated 283.1 MOS/KG (273-304); Potassium 4.1 MMOL/L (3.5-5.1); Sodium 142 MMOL/L (136-145); Total Protein 7.4 G/DL (6.4-8.2)
[2021-05-23 17:20] LABS: PT Patient Result 51.3 SECS (10.5-12.0); Partial Thromboplastin Time 86.1 SECS (23.9-33.8)
[2021-05-23 17:23] LABS: INR 5.2
[2021-05-23] MEDS ORDERED: NITROGLYCERIN SL 0.4 MG TABLET SL STA ×2 (17:26→19:47)
[2021-05-23] MEDS ORDERED: ASPIRIN CHEW 81 MG TABLET PO STA (17:26)
[2021-05-23 17:49] LABS: Anisocytosis Slight; Eosinophils 2 % (0-10); Lymphocytes 49 % (20-55); Macrocytosis Slight; Microcytosis Slight; Segmented Neutrophils 45 % (50-85); Total Cells Counted 100
[2021-05-23 17:50] LABS: Atypical Lymphocytes Few; Platelet Estimate Adequate
[2021-05-23 18:48] LABS: PT Patient Result 11.1 SECS (10.5-12.0); Partial Thromboplastin Time 27.6 SECS (23.9-33.8)
[2021-05-23] MEDS ORDERED: KETOROLAC 30 MG/1 ML VIAL IV STA (18:59)
[2021-05-23] MEDS ORDERED: hydrALAZINE 20 MG/1 ML VIAL IV STA (18:59)
[2021-05-23] MEDS ORDERED: MORPHINE 2 MG/1 ML SYRINGE IV STA (19:47)
[2021-05-23] MEDS ORDERED: ONDANSETRON 4 MG/2 ML VIAL IV STA (19:47)
[2021-05-23] MEDS ORDERED: GLUCAGON 1 MG VIAL IM PRN (20:48)
[2021-05-23] MEDS ORDERED: ACETAMINOPHEN 325 MG TABLET PO PRN (20:48)
[2021-05-23] MEDS ORDERED: ONDANSETRON 4 MG/2 ML VIAL IV PRN (20:48)
[2021-05-23] MEDS ORDERED: DEXTROSE 50% 25 GM/50 ML VIAL IV PRN (20:48)
[2021-05-23] MEDS ORDERED: ENOXAPARIN 40 MG/0.4 ML SYRINGE SUBCUT SCH (21:00)
[2021-05-23] MEDS ORDERED: KETOROLAC 15 MG/1 ML VIAL IV PRN (22:35)
[2021-05-24 00:53] LABS: Basophils # 0.1 10*3/uL (0.0-0.2); Eosinophils # 0.3 10*3/uL (0.0-0.87); Eosinophils % 4.1 % (0.00-10.9); Hematocrit 38.5 VOL% (42.0-52.0); Hemoglobin 12.7 GM/DL (14.0-18.0); Immature Granulocytes % 0.3 %; Immature Granulocytes Absolute 0.02 #; Lymphocytes # 3.8 10*3/uL (1.4-4.0); Lymphocytes % 56.4 % (21.2-54.2); Mean Corpuscular Volume 89.5 FL (87-102); Mean Platelet Volume 12.1 FL (9.6-12.0); Monocytes % 8.7 % (1.7-12.7); Neutrophils % 29.5 % (38.7-73.9); Platelet Count 147 T/CUMM (130-400); Red Cell Distribution Width 14.2 % (9.3-17.3); White Blood Count 6.8 T/CUMM (4-12)
[2021-05-24 01:20] LABS: Calcium 8.3 MG/DL (8.5-10.1); Osmolality,Calculated 276.7 MOS/KG (273-304); Potassium 3.6 MMOL/L (3.5-5.1)
[2021-05-24 01:49] LABS: Eosinophils 2 % (0-10); Lymphocytes 61 % (20-55); Reactive Lymphocytes 2+; Segmented Neutrophils 28 % (50-85); Total Cells Counted 100
[2021-05-24 01:53] LABS: Hypochromasia 1+; Platelet Estimate Normal
[2021-05-24] MEDS ORDERED: ASPIRIN 325 MG TABLET PO SCH (09:00)
[2021-05-24] MEDS ORDERED: LIDOCAINE 5% PATCH TRANSDERM SCH (09:00)
[2021-05-24] MEDS ORDERED: PANTOPRAZOLE 40 MG TABLET PO SCH (09:00)
[2021-05-24] MEDS ORDERED: carvediloL 3.125 MG TABLET PO SCH (09:00)
[2021-05-24] MEDS ORDERED: ATORVASTATIN 40 MG TABLET PO SCH (09:00)
[2021-05-24 12:02] LABS: Barbiturates Screen,Urine Negative (Negative); Benzodiazepines Screen,Urine Negative (Negative); Cannabinoid Screen,Urine Positive (Negative); Opiate Screen,Urine Positive (Negative); Phencyclidine Screen,Urine Negative (Negative)
[2021-05-24 16:09] VITALS: BP 179/107
== END 2021-05-24 16:07 | disposition home or self-care (01) ==
LOC: N.ED 16:19 → N.EDINP 16:19 → N.TELES 22:25
PROVIDERS: ADMIT Internal Medicine; ATTEND Internal Medicine